=== PATIENT | male | born 1970 | race Caucasian/White ===

== ENCOUNTER 2016-11-01 15:31 | Outpatient (CLI) | payer OTHER ==
[~2016-11-01 15:31] MED LIST: ALLEGRA-D 2424 HOUR PO; FISH OIL PO; FOLIC ACID1 MG PO; GLUCOSAMINE/CHO1 CA1 PO; LISINOPRIL10 MG PO; MULTIPLE VITAMIN PO; PRAVASTATIN SOD20 MG PO
--- NOTE | 2016-11-01 15:49 | DIAGNOSTIC IMAGING REPORT ---
PROCEDURE: XR CHEST 2 VIEW INDICATION: ACUTE BRONCHITIS TECHNIQUE: PA and lateral views. COMPARISON: Chest 03/07/2015 FINDINGS: Lungs are clear. Heart and mediastinum are normal. Thorax is normal. IMPRESSION: 1. Negative chest.
== END 2016-11-01 23:00 ==
LOC: XR SRH 15:31
DX: J20.9 Acute bronchitis, unspecified (principal)

== ENCOUNTER 2017-01-10 10:06 | Outpatient (CLI) | payer OTHER ==
--- NOTE | 2017-01-10 10:57 | DIAGNOSTIC IMAGING REPORT ---
PROCEDURE: DEXA BONE DENSITY STUDY CLINICAL INDICATION: HEMATURIA; RT FLANK PX; HYPERTENSION COMPARISON: None. FINDINGS: LUMBAR SPINE: Bone mineral density 0.947 g/cm2, T score -1.3 osteopenia LEFT HIP: Bone mineral density 0.905 g/cm2, T score -0.8 normal LEFT FEMORAL NECK: Bone mineral density 0.649 g/cm2, T score -2.1 osteopenia FRACTURE RISK CALCULATION ( when applicable): 10-year fracture risk of a major osteoporotic fracture and of a hip fracture not reported because the patient is a male under the age of 50 (T score greater or equal to -1.0 to: NORMAL) (T score from -1.1 to -2.4: OSTEOPENIA) (T score ess than or equal to -2.5: OSTEOPOROSIS) IMPRESSION: 1. Osteopenia lumbar spine and femoral neck.
--- NOTE | 2017-01-10 12:50 | DIAGNOSTIC IMAGING REPORT ---
PROCEDURE: CT THORAX ABD PELVIS W/CONT INDICATION: HEMATURIA; RT FLANK PX; HYPERTENSION TECHNIQUE: 125 ml of Isovue 300 injected intravenously and axial images were obtained of the entire thorax, abdomen, and pelvis with sagittal and coronal reformations. COMPARISON: Chest x-ray 11/01/[address] abdomen/pelvis 01/21/2015. FINDINGS: THORAX: Small right basilar pneumatocele. No adenopathy or effusion. Normal thoracic aorta. Normal heart size. Healing right fifth, sixth, seventh and eighth rib fractures. Healing left rib fractures 8-10. ABDOMEN: Liver, gallbladder, pancreas, spleen, adrenal glands and left kidney are normal. Small cortical right renal cyst. No hydronephrosis. Normal abdominal aorta. Stomach filled with gastric contents. Nonspecific bowel gas pattern. PELVIS: Appendix not visualized but no evidence of acute appendicitis. Prostate dystrophic calcifications. Normal bladder without evidence of calculi. No pelvic mass, inflammatory changes or free fluid. Small fat-containing umbilical hernia. Healing left inferior pubic ramus fracture. Severe L4-5 disc space narrowing. IMPRESSION: 1. Multiple healing bilateral rib and left inferior pubic ramus fractures All CT scans at this facility use dose modulation, iterative reconstruction, and/or weight-based dosing when appropriate to reduce radiation dose to as low as reasonably achievable.
== END 2017-01-10 23:00 ==
LOC: XR SRH 10:06 → CT SRH 10:30 → XR SRH 23:00
DX: R31.0 Gross hematuria (principal); R10.9 Unspecified abdominal pain; I10 Essential (primary) hypertension; M85.88 Other specified disorders of bone density and structure, other site; S32.502D Unspecified fracture of left pubis, subsequent encounter for fracture with routine healing